=== PATIENT | male | born 1990 | race American Indian/Alaskan Native ===

== ENCOUNTER 2017-05-31 08:29 | Emergency (ER) | payer SELFPAY ==
[2017-05-31 09:03] VITALS: BP 120/110
--- NOTE | 2017-05-31 09:16 | EDM.PDOC ---
ED HPI GENERAL MEDICAL PROBLEM - General Chief Complaint: Respiratory Problem Stated Complaint: SICK [id number] Time Seen by Provider: 05/31/17 09:10 Source of Information: Reports: Patient, RN, RN Notes Reviewed History Limitations: Reports: No Limitations - History of Present Illness INITIAL COMMENTS - FREE TEXT/NARRATIVE: Patient presents to the ER with c/o continuous cough. He tells the provider that the cough started about a week or week and a half ago. He had told the nurse that he has been coughing continuously for the past 30 minutes. He denies any drug use. He states he had a "few drinks". He denies fever or chills. He states nausea with vomiting accompanying the cough. He denies chest pain or shortness of breath. He states he has a headache, rating a 3/10. He denies the production of sputum, he states it has been a dry cough. Onset: Today Duration: Getting Worse Severity: Severe Improves with: Reports: None Worsens with: Reports: None Associated Symptoms: Reports: Cough Headache Pain Score (Numeric/FACES): 3 - Related Data Allergies Allergy/AdvReac Type Severity Reaction Status Date / Time No Known Allergies Allergy Verified 08/20/16 02:13 Home Meds: Home Meds . [No Known Home Meds] 08/20/16 [History] Past Medical History HEENT History: Reports: Impaired Vision, Other (See Below) Other HEENT History: wears glasses Cardiovascular History: Reports: Hypertension Respiratory History: Reports: Asthma Musculoskeletal History: Reports: Fracture Other Musculoskeletal History: rib fx Social & Family History - Tobacco Use Smoking Status *Q: Current Every Day Smoker Years of Tobacco use: 10 Packs/Tins Daily: 0.5 Used Tobacco, but Quit: No Second Hand Smoke Exposure: Yes - Caffeine Use Caffeine Use: Reports: Coffee, Energy Drinks, Soda - Recreational Drug Use Recreational Drug Use: No ED ROS GENERAL - Review of Systems Review Of Systems: ROS reveals no pertinent complaints other than HPI. ED EXAM, GENERAL - Physical Exam Exam: See Below Exam Limited By: Other (continuous cough) General Appearance: Alert, WD/WN, No Apparent Distress Eye Exam: Bilateral Eye: PERRL (pupils 7 bilaterally), Other (Sclera red bilaterally) Ears: Normal External Exam, Normal Canal, Hearing Grossly Normal, Normal TMs Ear Exam: Bilateral Ear: Auricle Normal, Canal Normal, TM normal Nose: Normal Inspection, Normal Mucosa, No Blood Throat/Mouth: Normal Lips, Normal Teeth, Normal Gums, Normal Voice, No Airway Compromise, Other (tonsils +2-3, erythematous, no exudate) Head: Atraumatic, Normocephalic Neck: Normal Inspection, Supple, Non-Tender, Full Range of Motion Respiratory/Chest: Chest Non-Tender, Wheezing (right upper), Other (continuous cough) Cardiovascular: Normal Peripheral Pulses, No Edema, No Gallop, No JVD, No Murmur , No Rub, Tachycardia Peripheral Pulses: 2+: Radial (L), Radial (R) GI/Abdominal: Normal Bowel Sounds, Soft, Non-Tender, No Organomegaly, No Distention, No Abnormal Bruit, No Mass (Male) Exam: Deferred Rectal (Males) Exam: Deferred Back Exam: Normal Inspection, Full Range of Motion, NT Extremities: Normal Inspection, Normal Range of Motion, Non-Tender, Normal Capillary Refill, No Pedal Edema Neurological: Alert, Oriented, Normal Cognition, Normal Gait, No Motor/Sensory Deficits Psychiatric: Anxious Skin Exam: Warm, Normal Color, No Rash EKG INTERPRETATION EKG Date: 05/31/17 Time: 09:15 Rhythm: NSR Rate (Beats/Min): 127 [place]: Normal P-Wave: Present QRS: Normal ST-T: Normal QT: Normal EKG Interpretation Comments: Sinus tachycardia Course - Vital Signs Last Recorded V/S: Last Vital Signs Temp 97.2 F 05/31/17 08:40 Pulse 138 H 05/31/17 08:40 Resp 16 05/31/17 08:40 BP 120/110 H 05/31/17 08:40 Pulse Ox 98 05/31/17 08:40 - Orders/Labs/Meds Orders: Active Orders 24 hr Category Date Time Status EKG Documentation Completion [RC] STAT Care 05/31/17 08:56 Active Chest 2V [CR] Urgent Exams 05/31/17 08:56 Ordered CULTURE STREP A CONFIRMATION [] Stat Lab 05/31/17 09:08 Results STREP SCRN A RAPID W CULT CONF [] Stat Lab 05/31/17 09:08 Results Labs: Laboratory Tests 05/31/17 05/31/17 05/31/17 Range/Units 08:55 08:55 09:07 WBC 14.3 H (5.0-10.0) 10^3/uL RBC 5.26 (4.6-6.2) 10^6/uL Hgb 16.2 (14.0-18.0) g/dL Hct 47.0 (40.0-54.0) % MCV 89.4 (80-100) fL MCH 30.8 (27.0-34.0) pg MCHC 34.5 (33.0-35.0) g/dL Plt Count 349 (150-450) 10^3/uL Neut % (Auto) 58.0 (42.2-75.2) % Lymph % (Auto) 33.2 (20.5-50.1) % [place] % (Auto) 6.4 (2-8) % Eos % (Auto) 1.9 (1.0-3.0) % Baso % (Auto) 0.5 (0.0-1.0) % Sodium (135-145) mmol/L Potassium (3.6-5.0) mmol/L Chloride (101-111) mmol/L Carbon Dioxide (21.0-31.0) mmol/L Anion Gap BUN (7-18) mg/dL Creatinine (0.6-1.3) mg/dL Est Cr Clr Drug Dosing mL/min Estimated GFR (MDRD) BUN/Creatinine Ratio Glucose (74-105) mg/dL Calcium (8.4-10.2) mg/dl Total Bilirubin (0.2-1.0) mg/dL AST (10-42) IU/L ALT (10-60) IU/L Alkaline Phosphatase (42-121) IU/L Troponin I (0.00-0.02) ng/ml Total Protein (6.7-8.2) g/dl Albumin (3.2-5.5) g/dl Globulin Albumin/Globulin Ratio Urine Color Yellow (YELLOW) Urine Appearance Clear (CLEAR) Urine pH 5.5 (5.0-9.0) Ur Specific [place] 1.025 (1.005-1.030) Urine Protein 30 H (NEGATIVE) Urine Glucose (UA) Negative (NEGATIVE) Urine Ketones Trace H (NEGATIVE) Urine Occult Blood Negative (NEGATIVE) Urine Nitrite Negative (NEGATIVE) Urine Bilirubin Negative (NEGATIVE) Urine Urobilinogen 0.2 (0.2-1.0) mg/dL Ur Leukocyte Esterase Negative (NEGATIVE) Urine RBC 0-5 /HPF Urine WBC 0-5 (0-5/HPF) /HPF Ur Epithelial Cells Occasional /HPF Urine Bacteria Few (0-FEW/HPF) /HPF Fine Granular Casts See note (0/LPF) /LPF Urine Mucus Occasional /LPF Urine Opiates Screen Negative (NEGATIVE) Ur Oxycodone Screen Negative (NEGATIVE) Urine Methadone Screen Negative (NEGATIVE) Ur Barbiturates Screen Negative (NEGATIVE) U Tricyclic Antidepress Negative (NEGATIVE) Ur Phencyclidine Scrn Negative (NEGATIVE) Ur Amphetamine Screen Negative (NEGATIVE) U Methamphetamines Scrn Negative (NEGATIVE) Urine MDMA Screen Negative (NEGATIVE) U Benzodiazepines Scrn Negative (NEGATIVE) Urine Cocaine Screen Negative (NEGATIVE) U Marijuana (THC) Screen Negative (NEGATIVE) 05/31/17 Range/Units 09:07 WBC (5.0-10.0) 10^3/uL RBC (4.6-6.2) 10^6/uL Hgb (14.0-18.0) g/dL Hct (40.0-54.0) % MCV (80-100) fL MCH (27.0-34.0) pg MCHC (33.0-35.0) g/dL Plt Count (150-450) 10^3/uL Neut % (Auto) (42.2-75.2) % Lymph % (Auto) (20.5-50.1) % [place] % (Auto) (2-8) % Eos % (Auto) (1.0-3.0) % Baso % (Auto) (0.0-1.0) % Sodium 139 (135-145) mmol/L Potassium 4.3 (3.6-5.0) mmol/L Chloride 105 (101-111) mmol/L Carbon Dioxide 21.0 (21.0-31.0) mmol/L Anion Gap 17.3 BUN 8 (7-18) mg/dL Creatinine 0.7 (0.6-1.3) mg/dL Est Cr Clr Drug Dosing 157.11 mL/min Estimated GFR (MDRD) > 60 BUN/Creatinine Ratio 11.42 Glucose 110 H (74-105) mg/dL Calcium 9.3 (8.4-10.2) mg/dl Total Bilirubin 0.5 (0.2-1.0) mg/dL AST 39 (10-42) IU/L ALT 58 (10-60) IU/L Alkaline Phosphatase 85 (42-121) IU/L Troponin I < 0.02 (0.00-0.02) ng/ml Total Protein 7.8 (6.7-8.2) g/dl Albumin 4.3 (3.2-5.5) g/dl Globulin 3.5 Albumin/Globulin Ratio 1.23 Urine Color (YELLOW) Urine Appearance (CLEAR) Urine pH (5.0-9.0) Ur Specific [place] (1.005-1.030) Urine Protein (NEGATIVE) Urine Glucose (UA) (NEGATIVE) Urine Ketones (NEGATIVE) Urine Occult Blood (NEGATIVE) Urine Nitrite (NEGATIVE) Urine Bilirubin (NEGATIVE) Urine Urobilinogen (0.2-1.0) mg/dL Ur Leukocyte Esterase (NEGATIVE) Urine RBC /HPF Urine WBC (0-5/HPF) /HPF Ur Epithelial Cells /HPF Urine Bacteria (0-FEW/HPF) /HPF Fine Granular Casts (0/LPF) /LPF Urine Mucus /LPF Urine Opiates Screen (NEGATIVE) Ur Oxycodone Screen (NEGATIVE) Urine Methadone Screen (NEGATIVE) Ur Barbiturates Screen (NEGATIVE) U Tricyclic Antidepress (NEGATIVE) Ur Phencyclidine Scrn (NEGATIVE) Ur Amphetamine Screen (NEGATIVE) U Methamphetamines Scrn (NEGATIVE) Urine MDMA Screen (NEGATIVE) U Benzodiazepines Scrn (NEGATIVE) Urine Cocaine Screen (NEGATIVE) U Marijuana (THC) Screen (NEGATIVE) Negative Group A Strep screen Meds: Medications Discontinued Medications Generic Name Dose Route Start Last Admin Trade Name Leatha PRN Reason Stop Dose Admin Promethazine HCl/Codeine 5 ml 05/31/17 09:29 05/31/17 09:33 Phenergan With Codeine PO 05/31/17 09:30 5 ml ONETIME ONE Administration - Radiology Interpretation Free Text/Narrative:: Chest xray: No acute findings. See rad report. Departure - Departure Time of Disposition: 09:52 Disposition: Home, Self-Care 01 Condition: Fair Clinical Impression: Bronchitis - Discharge Information Instructions: Acute Bronchitis, [id number] Forms: ED Department Discharge Additional Instructions: Azithromycin 500 mg orally once today. Azithromycin 250mg orally once daily for 4 days. Phenergan with Codiene orally every 4-6 hours as needed for cough. Drink plenty of fluids. Follow up with primary care provider in 3-4 days. - My Orders Last 24 Hours: My Active Orders 05/31/17 08:56 EKG Documentation Completion [RC] STAT Chest 2V [CR] Urgent 05/31/17 09:08 CULTURE STREP A CONFIRMATION [RM] Stat STREP SCRN A RAPID W CULT CONF [RM] Stat - Assessment/Plan Last 24 Hours: My Active Orders 05/31/17 08:56 EKG Documentation Completion [RC] STAT Chest 2V [CR] Urgent 05/31/17 09:08 CULTURE STREP A CONFIRMATION [RM] Stat STREP SCRN A RAPID W CULT CONF [RM] Stat
[2017-05-31] MEDS ORDERED: Codeine/Promethazine 10-6.25 MG/5 ML Syrup 5 ML UD Cup PO ONE (09:29)
[2017-05-31 09:34] LABS: CHLORIDE,CL 105 mmol/L (101-111); SODIUM,NA 139 mmol/L (135-145)
--- NOTE | 2017-06-15 07:22 | EKG ---
05/31/2017- RUSTY MONSON - This is a standard 12-lead EKG showing normal sinus tachycardia with some ST elevation into the precordial leads. Normal QRS duration. Normal FL interval with possible left anterior fascicular block. [facility] /[id number]
== END 2017-05-31 10:10 | disposition home or self-care (01) ==
LOC: DL.ED 08:29
DX: J40 Bronchitis, not specified as acute or chronic (principal); I10 Essential (primary) hypertension; F17.210 Nicotine dependence, cigarettes, uncomplicated
CPT/HCPCS: 36415; 71020; 80053; 80305; 81001; 84484; 85025; 87081; 87430; 93005; 93010; 99284; A9270; 99283

== ENCOUNTER 2021-01-19 19:07 | Emergency (ER) | payer OTHER ==
[2021-01-19] MEDS ORDERED: Acetaminophen/HYDROcodone 325-5 MG Tab PO ONE (19:08)
[2021-01-19] MEDS ORDERED: Clindamycin HCl 150 MG Cap PO ONE ×2 (19:08→20:45)
[2021-01-19] MEDS ORDERED: Bupivacaine 0.5% 30 ML SDV INJECT ONE (20:45)
[2021-01-19] MEDS ORDERED: Lidocaine 1% with EPINEPHrine 1:100,000 20 ML MDV INJECT ONE (20:45)
--- NOTE | 2021-01-19 20:48 | EDM.PDOC ---
ED HPI GENERAL MEDICAL PROBLEM - General Chief Complaint: ENT Problem Stated Complaint: LEFTSIDE TEETH, JAW NEEDS TO BE DRAINNED Time Seen by Provider: 01/19/21 20:46 Source of Information: Reports: Patient History Limitations: Reports: No Limitations - History of Present Illness INITIAL COMMENTS - FREE TEXT/NARRATIVE: Patient comes emergency department today from work with complaints of a dental infection. This patient about a week ago had some swelling in the left lower aspect of his jaw with some pain although it resolved and went away. Since Thursday it is gotten quite a bit bigger on the left lower aspect of the jaw. He has not seen a dentist yet. He has not taken anything for pain. He has no difficulty swallowing. No trismus. No fever no chills. No recent dental trauma. 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 [No Known Home Meds] 08/20/16 [History] Past Medical History - Past Health History Medical/Surgical History: Denies Medical/Surgical History HEENT History: Reports: Impaired Vision, Other (See Below) Other HEENT History: wears glasses Cardiovascular History: Reports: Hypertension Respiratory History: Reports: Asthma Musculoskeletal History: Reports: Fracture Other Musculoskeletal History: rib fx Endocrine/Metabolic History: Reports: Obesity/BMI 30+ - Infectious Disease History Infectious Disease History: Reports: Chicken Pox Social & Family History - Family History Family Medical History: No Pertinent Family History - Tobacco Use Tobacco Use Status *Q: Current Every Day Tobacco User Years of Tobacco use: 10 Packs/Tins Daily: 0.5 - Caffeine Use Caffeine Use: Reports: Coffee, Soda, Tea - Recreational Drug Use Recreational Drug Use: No ED ROS ENT - Review of Systems Review Of Systems: Comprehensive ROS is negative, except as noted in HPI. ED EXAM, ENT - Physical Exam Exam: See Below Exam Limited By: No Limitations General Appearance: Alert, WD/WN, No Apparent Distress Ears: Normal External Exam, Normal TMs Nose: Normal Inspection, Normal Mucousa Mouth/Throat: Normal Lips, Dental Abcess (In the left lower jaw the first molar the posterior aspect is broken off down to the pulp of the tooth. Immediately lateral to this there is a rather large abscess with central fluctuance.), Dental Pain, Dental Tenderness. No: Drooling, Hoarse Voice, Trismus, Uvular Deviation, Uvular Edema Head: Atraumatic, Normocephalic Neck: Normal Inspection, Supple, Non-Tender, Full Range of Motion Respiratory/Chest: No Respiratory Distress Cardiovascular: Normal Peripheral Pulses Extremities: Normal Inspection Neurological: Alert, Oriented Skin: Warm, Dry, Intact, Normal Color ED I&D PROCEDURES - I&D Site: dental abscess Local anesthesia - Lidocaine (Xylocaine): 1% with EPI Local Anesthesia - Bupivicaine (Marcaine): 0.5% Plain Area Incised With: 11 Blade Drainage: Purulent, Moderate Amount Probed to Break Up Loculations: Yes Course - Vital Signs Last Recorded V/S: Last Vital Signs Temp 97.7 F 01/19/21 21:31 Pulse 104 H 01/19/21 21:31 Resp 16 01/19/21 21:31 BP 160/112 H 01/19/21 21:31 Pulse Ox 98 01/19/21 21:31 - Orders/Labs/Meds Meds: Medications Discontinued Medications Generic Name Dose Route Start Last Admin Trade Name Freq PRN Reason Stop Dose Admin Hydrocodone Bitart/Acetaminophen Confirm 01/19/21 21:28 01/19/21 21:38 Acetaminophen/Hydrocodone 325-5 Mg Tab Administered 01/19/21 21:29 Not Given Dose 5 tab .ROUTE .STK-MED ONE Bupivacaine HCl 30 ml 01/19/21 20:45 01/19/21 21:23 Bupivacaine 0.5% 30 Ml Sdv INJECT 01/19/21 20:46 Not Given ONETIME ONE Clindamycin HCl 300 mg 01/19/21 20:45 01/19/21 21:17 Clindamycin Hcl 150 Mg Cap PO 01/19/21 20:46 300 mg ONETIME ONE Administration Clindamycin HCl Confirm 01/19/21 21:28 01/19/21 21:39 Clindamycin Hcl 150 Mg Cap Administered 01/19/21 21:29 Not Given Dose 300 mg .ROUTE .STK-MED ONE Lidocaine/Epinephrine 20 ml 01/19/21 20:45 01/19/21 21:18 Lidocaine 1% With Epinephrine 1:100,000 20 Ml Mdv INJECT 01/19/21 20:46 20 ml ONETIME ONE Administration - Re-Assessments/Exams Free Text/Narrative Re-Assessment/Exam: After risk benefits were explained to the patient of the left inferior alveolar block and I/D of the dental abscess. Verbal consent was obtained for the patient. 1% lidocaine with epinephrine and 0.5% bupivacaine without epinephrine was mixed in a 50-50 fashion. After the landmarks were identified for a left inferior alveolar block. I instilled 5 mils of the above solution into the site of the left inferior alveolar block region. I also instilled 2 mils along the gumline where the dental abscess is. Patient tolerated procedure well and had great anesthesia. I then made a small crucifix stab incision just lateral in the gums to the region of the first molar. Had immediate return of a rather moderate amount of thick purulent discharge. I was able to milk quite a bit of discharge as well. I then with a sterile saline syringe and 18-gauge Angiocath needle irrigated the abscess pocket. And then again was able to get more purulent discharge and irrigated the site again. The swelling was much improved on the patient's face. I had him rinse his mouth with hydrogen peroxide half strength. The patient was given clindamycin 300 mg orally. The patient is planning to see a dentist tomorrow he really needs to have this tooth extracted. Prescription for clindamycin as well as some pain meds for the next day or so. Patient tolerated procedure well. Discharge structures as below are explained to the patient he was comfortable with this plan and his questions were answered. Departure - Departure Time of Disposition: 21:18 Disposition: Home, Self-Care 01 Clinical Impression: Dental abscess Hypertension Qualifiers: Hypertension type: unspecified Qualified Code(s): I10 - Essential (primary) hypertension - Discharge Information Instructions: Dental Abscess, [id number] Referrals: PCP,None [Primary Care Provider] - Forms: ED Department Discharge Additional Instructions: Warm packs to the face. Tylenol and or Ibuprofen as needed for pain. Clindamycin 300mg 4 times a day for the next 5 days. RX given to the patient. Dose for the morning from the ED. Make sure at the pharmacy tomorrow to get pro-biotics as well to prevent an infectious type diarrhea from this medication. Also try to eat as much yogurt with live cultures until you are done with this medications. See Dentist on thursday for dental abscess. See your PCP on thursday for your blood pressure. Return to the ED if new or worsening symptoms. If pain not controlled with above norco, 1 tablet every 4 hrs as needed for pain. Caution sedation. #5 dispensed from the ED. Sepsis Event Note (ED) - Evaluation Sepsis Screening Result: No Definite Risk - Focused Exam Vital Signs: Vital Signs Temp Pulse Resp BP Pulse Ox 01/19/21 21:31 97.7 F 104 H 16 160/112 H 98 01/19/21 20:24 98.1 F 106 H 17 175/123 H 100
[2021-01-19] MEDS ORDERED: Acetaminophen/HYDROcodone 325-5 MG Tab ONE (21:28)
[2021-01-19] MEDS ORDERED: Clindamycin HCl 150 MG Cap ONE (21:28)
[2021-01-19 21:52] VITALS: BP 160/112; PULSE 104
== END 2021-01-19 21:39 | disposition home or self-care (01) ==
LOC: DL.ED 19:07
DX: K04.7 Periapical abscess without sinus (principal); I10 Essential (primary) hypertension; J45.909 Unspecified asthma, uncomplicated; E66.9 Obesity, unspecified; Z68.38 Body mass index [BMI] 38.0-38.9, adult; Z72.0 Tobacco use
CPT/HCPCS: 10061; 41800; 99283; 99283-25; A9270-GY

== ENCOUNTER 2023-03-27 02:49 | Emergency (ER) | payer SELFPAY ==
[2023-03-27 02:50] VITALS: BP 148/98; PULSE 108
[2023-03-27] MEDS ORDERED: Ketorolac 30 MG/ML SDV IM ONE (03:12)
== END 2023-03-27 04:50 | disposition home or self-care (01) ==
LOC: DL.ED 02:49
DX: S01.112A Laceration without foreign body of left eyelid and periocular area, initial encounter (principal); S05.12XA Contusion of eyeball and orbital tissues, left eye, initial encounter; S00.83XA Contusion of other part of head, initial encounter; S50.01XA Contusion of right elbow, initial encounter; I10 Essential (primary) hypertension; J45.909 Unspecified asthma, uncomplicated; E66.9 Obesity, unspecified; Z68.35 Body mass index [BMI] 35.0-35.9, adult; W50.0XXA Accidental hit or strike by another person, initial encounter; Y92.89 Other specified places as the place of occurrence of the external cause
CPT/HCPCS: 12011; 70450; 70486; 73080; 96372; 99282; 99285; J1885